=== PATIENT | female | born 1970 | race Caucasian/White ===

== ENCOUNTER 2020-11-12 22:37 | Emergency (ER) | payer OTHER ==
[~2020-11-12] VITALS: Ht 175.3 cm; Wt 95.2 kg
[~2020-11-12 22:37] MED LIST: ATOR20 PO; FLUO10 PO
[2020-11-12] MEDS ORDERED: VENL150ER PO (22:49)
== END 2020-11-12 23:45 | disposition home or self-care (01) ==
LOC: ER 22:37
DX: S60.351A Superficial foreign body of right thumb, initial encounter (principal); Z23 Encounter for immunization; F17.200 Nicotine dependence, unspecified, uncomplicated; W45.8XXA Other foreign body or object entering through skin, initial encounter; Y92.149 Unspecified place in prison as the place of occurrence of the external cause
CPT/HCPCS: 10120; 73130; 90471; 90714; 99283-25

== ENCOUNTER → 2021-01-29 | Outpatient (CLI) | payer OTHER ==
[~2021-01-29] MED LIST changes: +VENL150ER PO
== END ==
LOC: LAB SHORT 08:39
DX: L60.2 Onychogryphosis (principal); B35.1 Tinea unguium
CPT/HCPCS: 88305; 88312